=== PATIENT | male | born 1950 | race Caucasian/White ===

== ENCOUNTER 2023-01-03 07:54 | Emergency (ER) | payer MEDICARE, SELFPAY ==
--- NOTE | 2023-01-03 07:57 | ED_ITS ---
HPI - General Adult General Chief complaint: Extremity Problem,Nontraumatic Stated complaint: injury RT hip T-3 getting worse Time Seen by Provider: 01/03/23 07:56 History of Present Illness HPI narrative: 72-year-old male nonsmoker with history of a known L1 compression fracture and some disc problems at L4 and L5 presents with a chief complaint of worsening pain in his right low back, buttock and lateral hip. 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 Over the past few days it has become increasingly painful with walking or moving. Sitting still does not seem to bother him. He denies any fever or chills. He does not take blood thinners. He denies any lower extremity numbness, tingling or weakness. He denies any numbness or tingling in his groin, he has no loss of control of bowel or bladder Related Data Previous Rx's Medication Instructions Recorded cyclobenzaprine 10 mg tablet 10 mg PO TID PRN muscle spasm #14 01/03/23 tabs gabapentin 300 mg capsule 300 mg PO BEDTIME #14 caps 01/03/23 hydrocodone 5 mg-acetaminophen 325 1 tab PO Q4-6H PRN pain #10 tabs 01/03/23 mg tablet ketorolac 10 mg tablet 10 mg PO Q6H PRN pain #14 tabs 01/03/23 methylprednisolone 4 mg tablets in See Rx Instructions PO .COMPLEX 01/03/23 a dose pack (Medrol (Srinivas)) #21 ea Allergies Allergy/AdvReac Type Severity Reaction Status Date / Time No Known Drug Allergies Allergy Verified 01/03/23 08:05 Review of Systems Review of Systems Narrative: GENERAL: Denies chills, fatigue, malaise, fever, sweats. HEENT: Denies sinus pain, ear pain, sore throat, difficulty swallowing, dizziness. RESPIRATORY: Denies dyspnea, cough, wheezing, hemoptysis, sputum. CARDIOVASCULAR: Denies chest pain, palpitations, orthopnea, edema, GASTROINTESTINAL: Denies nausea, vomiting, abdominal pain, diarrhea, constipation, melena. : Denies dysuria, frequency, incontinence, hematuria, urinary retention. MUSCULOSKELETAL: See HPI SKIN: Denies rash, skin lesions, or other NEUROLOGIC: See HPI PSYCHIATRIC: No concerning psychosocial issues. 12 point review of systems is negative except for those stated above Patient History Social History Smoking Status: Never smoker Exam Narrative Exam Narrative: GENERAL: [72] year old patient appears stated age. Well-developed patient, in mild distress. Walks in under his own power with a slightly antalgic gait HEAD: Atraumatic. Normocephalic. EYES: Pupils equal round and reactive. Extraocular motions intact. No scleral icterus. No injection or drainage. ENT: Nose without bleeding, purulent drainage. Throat without erythema, tonsillar hypertrophy or exudate. Airway patent. NECK: Trachea midline. Non tender CARDIOVASCULAR: Regular rate and rhythm without murmurs, gallops, or rubs. RESPIRATORY: Clear to auscultation. Breath sounds equal bilaterally. No wheezes, rales, or rhonchi. GASTROINTESTINAL: Abdomen soft, non-tender, nondistended. EXTREMITIES: No edema or joint tenderness. BACK: strainer tender but free of any obvious external abnormalities. Patient exam notes decreased range of motion and muscle spasm, but no CVA tenderness, or vertebral point tenderness. There are no symptoms of cauda equina such as saddle anesthesia, and decreased reflexes, decreased sensation or strength. No pain in hip with passive range of motion or axial loading. NEURO: AOx3. SKIN: No rash or erythema of visible areas Initial Vital Signs Initial Vital Signs: Vital Signs Temperature 97.7 F 01/03/23 08:00 Pulse Rate 61 01/03/23 08:00 Respiratory Rate 19 01/03/23 08:00 Blood Pressure 151/86 H 01/03/23 08:00 Pulse Oximetry 99 01/03/23 08:00 Oxygen Delivery Method Room Air 01/03/23 08:00 Course Orders Ordered: Discontinued Medications Gabapentin (Gabapentin 300 Mg Capsule) 300 mg PO NOW ONE Stop: 01/03/23 08:05 Last Admin: 01/03/23 08:08 Dose: 300 mg Documented By: LALO Ketorolac Tromethamine (Ketorolac 30 Mg/Ml Vial) 30 mg IM NOW ONE Stop: 01/03/23 08:05 Last Admin: 01/03/23 08:09 Dose: 30 mg Documented By: LALO Prednisone (Prednisone 20 Mg Tablet) 40 mg PO NOW ONE Stop: 01/03/23 08:05 Last Admin: 01/03/23 08:09 Dose: 40 mg Documented By: RLS Medical Decision Making MDM Narrative Medical decision making narrative: [72] year old patient presents with right low back and hip pain Multiple etiologies for patient's symptoms considered including, but not limited to: [Epidural abscess versus hematoma versus Fracture versus dislocation versus lumbar radiculopathy versus piriformis syndrome versus labral injury versus other] Prior Charts reviewed in our EMR Primary Historian: patient Imaging reviewed: Hip x-ray notes Patient's symptoms improved over duration of stay with above-stated therapies. Patient with increasing hip pain in the absence of trauma or injury. Multiple diagnoses considered as noted above. Thankfully the patient has no red flag findings suggestive of a neurosurgical emergencies such as epidural hematoma, abscess or cauda equina. Patient does have recent imaging demonstrating a co mpression fracture at L1 with some disc issues at L4 and L5 raising my suspicion of potential radiculopathy. He denies any specific trauma, there is no pain directly in the hip and no pain with passive range of motion including flexion, extension, internal and external rotation or axial loading suggesting a low likelihood of occult fracture or inflammatory process or labral injury of the hip itself. Findings and discharge diagnosis discussed with patient/family followed by verbalization of understanding Return precautions discussed with patient/family whom verbalize understanding of diagnosis and plan Discharge Plan Departure Patient Disposition: Home Clinical Impression: Acute hip pain, Lumbar radiculopathy, right Instructions: DI for Lumbar Radiculopathy Activity Restrictions/Additional Instructions: *You have been diagnosed with [right hip pain, as we discuss this is most likely due to a lumbar radiculopathy. Your history and physical exam are reassuring and there is no evidence of a neurosurgical emergency at this time] *What to do: *Please continue to take your regular medications as directed. [ x] New medication prescriptions sent to your pharmacy: [[facility] ] [ ] New medication written as a paper prescription [ ] No new medications given *Please follow up with your primary care provider in 2-3 days, call for an appointment. Let them know you were seen in the Emergency Department and that we ask that you be seen in follow up. *Return to Emergency Department if you should have any new, worsening or concerning symptoms, such as [fever greater than 101 F, shaking chills, worsening pain, persistent vomiting or other bothersome symptoms] You have been prescribed a short course of narcotic medications. These are potentially dangerous and addictive medications that should be used carefully. While on these medications you cannot drive or operate heavy machinery. Additionally, you cannot sign legal documents or perform any duties such as this. 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 Please understand that we cannot provide further refills of narcotics or controlled substances through the ED and your pain management will need to be through your Primary Care Provider Prescriptions: New cyclobenzaprine 10 mg tablet 10 mg PO TID PRN (Reason: muscle spasm) Qty: 14 0RF hydrocodone-acetaminophen 5-325 mg tablet 1 tab PO Q4-6H PRN (Reason: pain) Qty: 10 0RF ketorolac 10 mg tablet 10 mg PO Q6H PRN (Reason: pain) Qty: 14 0RF gabapentin 300 mg capsule 300 mg PO BEDTIME Qty: 14 0RF methylprednisolone [Medrol (Srinivas)] 4 mg tablets,dose pack See Rx Instructions .ROUTE .COMPLEX Qty: 21 0RF Rx Instructions: orally per package directions Referrals: Miscellaneous,Doctor, [Non-Staff] - Stand Alone Forms: Patient Portal/API
[2023-01-03 08:00] VITALS: BP 151/86; PULSE 61; RESP 19; TEMP 36.5; O2SAT 99; BMI 24.2
--- NOTE | 2023-01-03 08:04 | DI.RAD.S_ITS ---
PROCEDURE: XR HIP W PEL IF DONE RT 2V INDICATIONS: R hip pain TECHNIQUE: 2 views of the hip were acquired. COMPARISON: None. FINDINGS: Bones: No fractures or dislocations. No suspicious bony lesions. The visualized pelvic ring appears intact. Mild nonuniform joint space narrowing with osteophytosis. Soft tissues: No suspicious soft tissue calcifications or masses. IMPRESSION: No acute bony abnormality. Mild hip osteoarthritis. Dictated by: Michael Flores M.D. on 01/03/2023 at 8:26 Approved by: Michael Flores M.D. on 01/03/2023 at 8:27
[2023-01-03] MEDS: GABAPENTIN 300 MG CAPSULE PO (08:08)
[2023-01-03] MEDS: predniSONE 20 MG TABLET 40 MG PO (08:09)
[2023-01-03] MEDS: KETOROLAC 30 MG/ML VIAL IM (08:09)
[2023-01-03 09:06] VITALS: BP 155/67; PULSE 50; RESP 16; O2SAT 96
== END 2023-01-03 09:18 | disposition home or self-care (01) ==
PROVIDERS: Emergency Provider Emergency Medicine; PCP Orthopaedic Surgery
DX: M54.16 Radiculopathy, lumbar region (principal); M25.551 Pain in right hip
CPT/HCPCS: 73502; 96372; 99283; 99284; J1885